=== PATIENT | female | born 1975 | race Caucasian/White ===

== ENCOUNTER 2020-09-19 08:00 | Inpatient (IN) | payer BC ==
[2020-09-19] MEDS ORDERED: Pepcid 20 MG VIAL IV ONE ×2 (08:08→08:34)
[2020-09-19] MEDS ORDERED: Reglan 10 MG/2 ML IV ONE (08:08)
[2020-09-19] MEDS ORDERED: Transderm Scop 1.5MG Patch TOP PRN (08:08)
[2020-09-19] MEDS ORDERED: Lactated Ringers 1,000 ML IV SCH (08:30)
[2020-09-19] MEDS ORDERED: CEFAZOLIN 2 GM-D5W BAG** 2 GM/50 ML ML IV SCH (08:30)
[2020-09-19] MEDS ORDERED: Transderm Scop 1.5MG Patch ONE (08:34)
[2020-09-19] MEDS ORDERED: CEFAZOLIN 2 GM-D5W BAG** 2 GM/50 ML ML IV ONE (08:34)
[2020-09-19 09:13] LABS: Hematocrit 36.2 % (35-47); Mean Cell Volume 94.3 fl (78-100); Mean Corpuscular Hemoglobin 31.3 pg (26-32); Mean Corpuscular Hgb Concent. 33.1 g/dl (32-36); Mean Platelet Volume 11.1 fl (7.5-11.0); Platelet Count 284 K/mm3 (150-450); Red Blood Count 3.84 M/mm3 (4.1-5.4); Red Cell Distribution Width 14.2 % (11.5-14.0); White Blood Count 8.5 K/mm3 (4.0-10.5)
[2020-09-19 09:49] LABS: ABO TYPING A; Antibody Screen NEGATIVE (NEGATIVE); RH TYPING NEGATIVE
[2020-09-19] MEDS ORDERED: SUBLIMAZE 100 MCG/2 ML ONE (10:46)
[2020-09-19] MEDS ORDERED: Zemuron 100 MG/10 ML ONE (10:46)
[2020-09-19] MEDS ORDERED: DIPRIVAN 200 MG/20 ML IV ONE (10:46)
[2020-09-19] MEDS ORDERED: Astramorph-Pf 5 MG/10 ML ONE (10:47)
[2020-09-19] MEDS ORDERED: Versed 2 MG/2 ML Injection ONE (10:47)
[2020-09-19] MEDS ORDERED: Lactated Ringers 1,000 ML IV ONE ×2 (11:00→11:13)
[2020-09-19] MEDS ORDERED: PHENYLEPHRINE HCL ONE (11:19)
[2020-09-19] MEDS ORDERED: Naropin 0.5% 30 ML VIAL ONE (11:58)
[2020-09-19] MEDS ORDERED: EPINEPHRINE 1MG/ML AMP ONE (11:58)
[2020-09-19] MEDS ORDERED: Decadron 4 MG INJ ONE (12:14)
[2020-09-19] MEDS ORDERED: Zofran 4 MG/2 ML VIAL ONE (12:15)
[2020-09-19] MEDS ORDERED: TORAdol 30 mg Injection ONE (12:17)
[2020-09-19] MEDS ORDERED: BRIDION 200MG/2ML IV ONE (12:19)
[2020-09-19] MEDS ORDERED: Zofran 4 MG/2 ML VIAL IV PRN (13:44)
[2020-09-19] MEDS ORDERED: TORAdol 30 mg Injection IV PRN (13:48)
[2020-09-19] MEDS: Mylicon 80MG PO SCH ×2 (14:05→21:12)
[2020-09-19] MEDS: Lactated Ringers 1,000 ML IV SCH ×2 (14:05→23:16)
[2020-09-19] MEDS: KEFZOL 1 GM/50 ML PREMIX** 1 GM/50 ML IVPB IV SCH ×2 (14:05→21:11)
[2020-09-19] MEDS: Reglan 10 MG/2 ML IV SCH ×2 (14:05→21:11)
[2020-09-19 14:16] LABS: Appearance CLEAR (CLEAR); Bilirubin NEGATIVE (NEGATIVE); Blood SMALL Ery/ul (0-5); Epithelial Cells RARE /HPF (FEW); Glucose NEGATIVE (NEGATIVE); Ketones NEGATIVE (NEGATIVE); Leukocyte Esterase NEGATIVE (NEGATIVE); Mucus SLIGHT /HPF (NEGATIVE); Nitrite NEGATIVE (NEGATIVE); Protein,Urine Dip NEGATIVE (Negative); Urobilinogen NEGATIVE mg/dL (0-1)
[2020-09-19] MEDS ORDERED: MEDICATION INTERVENTION PO SCH (14:45)
[2020-09-19] MEDS: VITAMIN D PO SCH (15:27)
[2020-09-19] MEDS: Protonix 40MG Tablet PO SCH (15:27)
[2020-09-19 18:18] LABS: Hematocrit 35.4 % (35-47); Hemoglobin 11.7 gm/dl (12.0-16.0); Mean Cell Volume 95.9 fl (78-100); Mean Corpuscular Hemoglobin 31.7 pg (26-32); Mean Corpuscular Hgb Concent. 33.1 g/dl (32-36); Platelet Count 290 K/mm3 (150-450); Red Blood Count 3.69 M/mm3 (4.1-5.4); Red Cell Distribution Width 14.3 % (11.5-14.0)
[2020-09-19 21:04] LABS: ALBUMIN 3.6 g/dL (3.5-5.0); ALKALINE PHOSPHATASE 45 U/L (38-126); ANION GAP 10.7 MEQ/L (5-15); BLOOD UREA NITROGEN 9 mg/dL (7-17); CHLORIDE 107 mmol/L (98-107); Calcium 8.8 mg/dL (8.4-10.2); Carbon Dioxide 21 mmol/L (22-30); Creatinine 1 0.79 mg/dL (0.52-1.04); EST GLOMERULAR FILTRATION RATE > 60.0 ML/MIN; Glucose 158 mg/dL (74-106); Potassium 4.1 mmol/L (3.5-5.1); SGOT/AST 40 U/L (14-36); SGPT/ALT 31 U/L (0-35); SODIUM 135 mmol/L (137-145); Total Protein 6.6 g/dL (6.3-8.2)
[2020-09-19] MEDS: Colace 100 MG PO SCH (21:11)
[2020-09-20 05:23] LABS: Hematocrit 32.5 % (35-47); Hemoglobin 10.6 gm/dl (12.0-16.0); Mean Cell Volume 96.4 fl (78-100); Mean Corpuscular Hemoglobin 31.5 pg (26-32); Mean Corpuscular Hgb Concent. 32.6 g/dl (32-36); Mean Platelet Volume 11.5 fl (7.5-11.0); Platelet Count 288 K/mm3 (150-450); Red Blood Count 3.37 M/mm3 (4.1-5.4); Red Cell Distribution Width 14.2 % (11.5-14.0); White Blood Count 14.7 K/mm3 (4.0-10.5)
[2020-09-20 05:38] LABS: ALBUMIN 3.3 g/dL (3.5-5.0); ALKALINE PHOSPHATASE 45 U/L (38-126); ANION GAP 8.7 MEQ/L (5-15); BLOOD UREA NITROGEN 10 mg/dL (7-17); CHLORIDE 107 mmol/L (98-107); Calcium 8.9 mg/dL (8.4-10.2); Carbon Dioxide 25 mmol/L (22-30); Creatinine 1 0.79 mg/dL (0.52-1.04); EST GLOMERULAR FILTRATION RATE > 60.0 ML/MIN; Glucose 119 mg/dL (74-106); SGOT/AST 32 U/L (14-36); SGPT/ALT 25 U/L (0-35); SODIUM 136 mmol/L (137-145); Total Protein 6.3 g/dL (6.3-8.2)
[2020-09-20] MEDS ORDERED: Narcan 0.4 MG/ML IV PRN (06:00)
[2020-09-20] MEDS ORDERED: Zofran 4 MG/2 ML VIAL IV PRN (06:00)
[2020-09-20] MEDS ORDERED: DEMEROL 50 MG IV PRN (06:00)
[2020-09-20] MEDS ORDERED: Nubain 10 MG/ML IV PRN ×2 (06:00→08:15)
[2020-09-20] MEDS ORDERED: Sodium Chloride 0.9% 10 ML FLUSH Syringe IJ PRN (06:00)
[2020-09-20] MEDS ORDERED: Sodium Chloride 0.9% 10 ML FLUSH Syringe IJ SCH (06:00)
[2020-09-20] MEDS ORDERED: CLARITIN 10 MG PO PRN (06:00)
[2020-09-20] MEDS ORDERED: MORPHINE SULFATE 2 MG INJ IV PRN (06:00)
[2020-09-20] MEDS: Mylicon 80MG PO SCH ×3 (07:33→22:56)
[2020-09-20] MEDS: Reglan 10 MG/2 ML IV SCH (07:33)
[2020-09-20] MEDS: Lactated Ringers 1,000 ML IV SCH (07:51)
[2020-09-20] MEDS: ENOXAPARIN SODIUM SQ SCH (07:51)
[2020-09-20] MEDS ORDERED: BENADRYL 50 MG/ML IV PRN (08:01)
[2020-09-20] MEDS: Protonix 40MG Tablet PO SCH (09:07)
[2020-09-20] MEDS: VITAMIN D PO SCH (09:07)
[2020-09-20] MEDS: Colace 100 MG PO SCH ×2 (09:08→22:56)
[2020-09-20] MEDS ORDERED: CHOLECALCIFEROL PO SCH (10:00)
[2020-09-20] MEDS ORDERED: ELDERBERRY FRUIT AND FLOWER PO SCH (10:00)
[2020-09-20] MEDS ORDERED: NON-FORMULARY ITEM (Omeprazole [Omeprazole] 40 MG) PO SCH (10:00)
--- NOTE | 2020-09-20 12:30 | OP ---
SURGERY DATE/TIME: 09/19/2020 1048 PREOPERATIVE DIAGNOSIS: 1. SYMPTOMATIC LARGE FIBROID UTERUS. POSTOPERATIVE DIAGNOSIS: 1. SYMPTOMATIC LARGE FIBROID UTERUS WITH A 6 X 6 CM ANTERIOR FIBROID. PROCEDURE: 1. Laparotomy, supracervical hysterectomy, bilateral salpingectomy. SURGEON: Blake Isbell D.O. HEADLIGHT ASSEMBLER: esa Acevedo. ANESTHESIA: General. ESTIMATED BLOOD LOSS: 100 cc. COMPLICATIONS: None. INDICATIONS: The risks, benefits, indications and alternatives of the procedure were reviewed with the patient prior to procedure. The patient understood the risk of infection, bleeding, bowel injury, bladder injury, ureteral injury, pelvic infection as well as thromboembolic disorder associated with this surgery. However, desires to have this procedure as a possible means for alleviating her current medical condition. DESCRIPTION OF PROCEDURE AND FINDINGS: At this point the patient was taken to the operating room where she was placed in supine position, given general anesthesia, prepared and draped in usual sterile fashion. A Pfannenstiel incision was made approximately 2 cm above the symphysis pubis and extended sharply to the rectus fascia. The fascia was then incised bilaterally with curved Tsai scissors and the muscle of the anterior abdominal wall was in the midline by sharp and blunt dissection. The peritoneum was then grasped between two pickups elevated and entered sharply with Metzenbaum scissors. The pelvis was then examined and noted to have an approximately 4 week sized uterus with a 6 X 6 cm appearing anterior fibroid. An O'Ford-O'Argueta retractor was placed into the incision and the bowel packed away with moist laparotomy sponges. Pelvic clamps were placed on either side of the cornua and used for retraction. From this point, the LigaSure was used where it was placed over the left utero-ovarian ligament where it was clamped, coagulated, and cut and taken down to the round ligament towards the uterine vasculature. The same procedure was performed on the right side where it was placed over the right utero-ovarian ligament, clamped, coagulated, and cut and taken down to the round ligament toward the uterine vasculature. From this point, the atria of the broad ligament on both sides were incised on the bladder reflection to the one on both sides where it was taken down with a sponge stick. From this point, again the bladder was gently dissected off of the lower uterine segment and the cervix with a sponge stick. From this point, the LigaSure was used and it was used to clamp, coagulate, and cut the uterine vessels on both sides at 2 contiguous regions on either side. After hemostasis was obtained, the uterus was then amputated from its cervical stump region using the cautery. After complete removal of the uterus from its cervical stump. The cervical stump was then closed with 0 Vicryl suture and hemostasis was obtained. From this point, the bilateral tubes were elevated and excised using the LigaSure and hemostasis was obtained. From this point, the pelvis was then irrigated copiously with warm normal saline. All lap, sponges, and instruments were then removed from the patient's abdomen. From this point, the fascia was then closed with running 0 Vicryl and hemostasis assured. The subcutaneous tissue was closed with 3-0 Vicryl suture and the skin was closed with absorbable miguel angel called Insorb. Sponge, lap, needle and instrument counts were correct x2. The patient was then taken to the recovery room in stable condition. The bilateral ovaries appeared to be within normal limits. They were not removed during the procedure.
[2020-09-20] MEDS: PERCOCET TABLET 5/325MG PO PRN (19:50)
[2020-09-21] MEDS: PERCOCET TABLET 5/325MG PO PRN (04:34)
[2020-09-21 07:15] VITALS: BP 112/55; PULSE 83; O2SAT 94
[2020-09-21] MEDS: VITAMIN D PO SCH (08:15)
[2020-09-21] MEDS: ENOXAPARIN SODIUM SQ SCH (08:15)
[2020-09-21] MEDS: Protonix 40MG Tablet PO SCH (08:16)
[2020-09-21] MEDS: Colace 100 MG PO SCH (08:16)
[2020-09-21] MEDS: Mylicon 80MG PO SCH (08:16)
--- NOTE | 2020-09-21 13:05 | PCM.DS ---
Discharge Summary Date of Admission: 09/19/20 08:00 Admitting Physician: ROMI VASQUEZ DO Primary Care Provider: ROMI VASQUEZ DO Allergies Allergies No Known Drug Allergies Allergy (Verified 09/19/20 08:24) Hospital Summary - Hospital Course Hospital Course: pt was admitted on sep 19 for undergoing laparotomy supracervical hysterectomy with b/l salpingectomy secondary to symptomatic fibroid uterus and underwent procedure without complication. during postop period had stable h/h and normal creatinine level. pt was able to ambulate and tolerate diet by postop day 1 and today stable for discharge. pt was given norco for pain management and was given clindamycin bid 5 days for prophylaxis. all questions answered to her satisfaction. pt stable for discharge. - Vitals & Intake/Output Vital Signs: Vital Signs Temperature 98.6 F 09/21/20 07:15 Pulse Rate 83 09/21/20 07:15 Respiratory Rate 18 09/21/20 08:00 Blood Pressure 112/55 09/21/20 07:15 O2 Sat by Pulse Oximetry 94 L 09/21/20 07:15 Intake & Output: Intake & Output 09/19/20 09/20/20 09/21/20 09/22/20 11:59 11:59 11:59 11:59 Intake Total 1089 760 Output Total 875 700 Balance 214 60 Weight 80.5 kg 82.3 kg - Lab Result Diagrams: 09/20/20 04:24 09/20/20 04:24 Micro Results-Entire Visit: Microbiology 09/19/20 11:10 Urine Culture - Final Catherized NO GROWTH - Procedures and Test Procedures and Tests throughout Hospitalization: Therapy Orders & Screens 09/19/20 13:35 Incentive Spirometry UD Comment: Diagnosis: ENLARGED FIBROID UTERUS, ABNORMAL UTERINE BLEEDING 09/19/20 14:12 Respiratory Therapy Assessment DAILY Comment: Diagnosis: ENLARGED FIBROID UTERUS, ABNORMAL UTERINE BLEEDING Final Diagnosis/Problem List - Final Discharge Diagnosis/Problem (1) Fibroid uterus Status: Acute Code(s): D25.9 - LEIOMYOMA OF UTERUS, UNSPECIFIED (2) hysterec Status: Acute - Discharge Condition: Stable Prescriptions: New clindamycin HCL [Clindamycin HCl] 300 mg PO BID 5 Days #10 capsule Hydrocodone/APAP 5-325 Tab^^^ [Troy 5-325 Tablet^^^] 1 tab PO Q6HPRN PRN #26 tablet MDD 4 PRN Reason: Pain Continue Omeprazole 40 mg PO DAILY Cholecalciferol (Vitamin D3) [Vitamin D3] 4,000 iu PO DAILY Elderberry Fruit and Flower [Black Elderberry 575 mg Cap] 1 each PO DAILY Instructions: Hysterectomy (DC) Follow up with: ROMI VASQUEZ DO [Primary Care Provider] - 2 weeks Forms: Discharge Instructions
--- NOTE | 2020-09-21 13:08 | PCM.NOTE ---
Date and Time: 09/21/20 1305 Subjective Assessment: pod 2 pt doing well today ambulating and tolerating diet vss afebrile abd; per nursing staff healing well a/p sp laparotomy supracervical hysterectomy b/l salpingectomy dc home today pt was thought to have gone home yesterday however decided to stay through today OBJECTIVE DATA Vital Signs: Vital Signs - 24 hr Temp Pulse Resp BP Pulse Ox 09/21/20 08:00 18 09/21/20 07:15 98.6 F 83 18 112/55 94 L 09/21/20 04:00 98.2 F 75 16 111/59 96 09/21/20 00:00 16 09/20/20 23:47 98.1 F 73 16 112/56 97 09/20/20 20:07 98.2 F 77 17 121/67 96 09/20/20 20:00 18 09/20/20 16:00 98.6 F 78 16 111/55 96 Pain Assessment - Last Documented Pain Intensity 3 Pain Scale Used 0-10 Pain Scale Intake and Output: Intake & Output 09/19/20 09/20/20 09/21/20 09/22/20 11:59 11:59 11:59 11:59 Intake Total 1089 760 Output Total 875 700 Balance 214 60 Weight 80.5 kg 82.3 kg Assessment/Plan (1) Fibroid uterus Status: Acute Code(s): D25.9 - LEIOMYOMA OF UTERUS, UNSPECIFIED (2) hysterec Status: Acute
== END 2020-09-21 09:40 | disposition home or self-care (01) | DRG 743 ==
LOC: MED SURG 08:00 → EDSTATUS 13:47
PROVIDERS: ADMIT Obstetrics & Gynecology; ATTEND Obstetrics & Gynecology
PROC: 0UT90ZL Resection of Uterus, Supracervical, Open Approach (ICD-10-PCS; principal; 2020-09-19)
PROC: 0UT70ZZ Resection of Bilateral Fallopian Tubes, Open Approach (ICD-10-PCS; 2020-09-19)
DX: D25.9 Leiomyoma of uterus, unspecified (principal); N80.0 Endometriosis of uterus; N93.9 Abnormal uterine and vaginal bleeding, unspecified
CPT/HCPCS: 36415; 58180; 64488; 76937; 76942; 80053; 81001; 84703; 85027; 86850; 86900; 86901; 87086; 94760; J0171; J0690; J1100; J1650; J1885; J2250; J2274; J2370; J2405; J2704; J2795; J3010; A9270-GY